=== PATIENT | female | born 1995 | race Caucasian/White ===

== ENCOUNTER 2021-12-19 11:17 | Emergency (ER) | payer OTHER, SELFPAY ==
[2021-12-19 12:07] VITALS: BP 135/89; PULSE 86; RESP 16; TEMP 36.4; O2SAT 99
[2021-12-19 12:44] LABS: Appearance Urine Clear (Clear); Bilirubin Urine Negative (Negative); Color Urine Yellow (Yellow); Glucose Urine UA Negative (Negative); Ketones Urine Negative (Negative); Leukocyte Esterase Ur Negative LEU/UL (Negative); Nitrate Urine Negative (Negative); Protein Urine Negative (Negative); Urobilinogen Urine 0.2 mg/dL (<2.0)
[2021-12-19 12:49] LABS: Add Urine Microscopic? YES; Blood Urine Trace-Intact (Negative)
[2021-12-19 12:54] LABS: Squamous Epithelial Cell Urine Moderate /hpf (Few)
--- NOTE | 2021-12-19 12:58 | ED.BACK ---
HPI - Back Pain/Injury General Chief Complaint: Back Pain/Injury Stated Complaint: back pain Time Seen by Provider: 12/19/21 12:10 History of Present Illness HPI Narrative: 25-year-old female presents the emergency room with cute onset of lower back pain. Patient states that she woke up with the pain yesterday and radiates up into her bilateral shoulder blades. Patient states pain is worse with rotation and lateral bending. Patient denies any injury or trauma. Patient denies any dysuria difficulty urinating. Patient states that she called EMS yesterday and was seen at [facility] emergency room but was not evaluated by any providers. Patient states that she has not taken any medication for the symptoms. Related Data Home Medications Medication Instructions Recorded Confirmed escitalopram oxalate 10 mg tablet 10 mg PO DAILY 12/19/21 12/19/21 (Lexapro) Allergies Allergy/AdvReac Type Severity Reaction Status Date / Time No Known Allergies Allergy Verified 12/19/21 12:14 Review of Systems Review of Systems: CONSTITUTIONAL: Denies fever, chills, or sweats. EYES: Denies visual changes, redness, or discharge. ENT: Denies rhinorrhea, congestion, sore throat, or otalgia. CARDIOVASCULAR: Denies chest pain, palpitations, or edema. RESPIRATORY: Denies cough or dyspnea. GASTROINTESTINAL: Denies abdominal pain, nausea, vomiting, or diarrhea. GENITOURINARY: Denies dysuria or hematuria. SKIN: Denies rash or itching. MUSCULOSKELETAL: Reports low back pain NEUROLOGIC: Denies headache, numbness, dizziness, or weakness. PSYCHIATRIC: Denies anxiety or depression. Exam Narrative: GENERAL: Well-appearing, well-nourished, and in no acute distress. HEAD: Normocephalic, atraumatic. EYES: PERRLA and EOMI. CHEST: Clear to auscultation. No respiratory distress. No wheezes rales or rhonchi HEART: Regular rate and rhythm. No murmur heard. Normal peripheral pulses. ABDOMEN: Soft, nontender, nondistended, normal active bowel sounds. EXTREMITIES: Normal range of motion. No edema. BACK: Tenderness over the right latissimus dorsi, with notable muscle spasms. No midline tenderness in the thoracic or lumbar spine, no step-offs, no bony abnormality. Pain is worse with bilateral rotation and bilateral lateral bend. No CVA tenderness SKIN: Warm, dry, no rash. NEURO: No focal deficits. Alert and oriented x3. No paresthesias PSYCH: Normal mood and affect. Course Vital Signs Vital signs: Vital Signs Temperature 36.4 C 12/19/21 12:07 Pulse Rate 86 12/19/21 12:07 Respiratory Rate 16 12/19/21 12:07 Blood Pressure 135/89 12/19/21 12:07 Pulse Oximetry 99 12/19/21 12:07 Oxygen Delivery Room Air 12/19/21 12:07 Temperature 36.4 C 12/19/21 12:07 Pulse Rate 86 12/19/21 12:07 Respiratory Rate 16 12/19/21 12:07 Blood Pressure 135/89 12/19/21 12:07 Pulse Oximetry 99 12/19/21 12:07 Oxygen Delivery Room Air 12/19/21 12:07 MDM - Back Pain/Injury Lab Data Labs: Lab Results 12/19/21 Range/Units 12:26 Urine Color Yellow (Yellow) Urine Appearance Clear (Clear) Urine pH 7.0 (5.0-9.0) Ur Specific Sarah Ann 1.020 (1.001-1.035) Urine Protein Negative (Negative) mg/dL Urine Glucose (UA) Negative (Negative) mg/dL Urine Ketones Negative (Negative) mg/dL Ur Blood (Man) Trace-intact (Negative) Urine Nitrate Negative (Negative) Urine Bilirubin Negative (Negative) Urine Urobilinogen 0.2 (<2.0) mg/dL Leukocyte Esterase Rfl Negative (Negative) NORBERTO/UL UCG Bedside Result Negative Reference Range: Negative Discharge Plan Discharge Clinical Impression: Strain of lumbar region Patient Disposition: Home, Self-Care Condition: Stable Instructions: Antibiotic Form, Acute Low Back Pain (ED) Prescriptions: New methocarbamol 500 mg tablet 500 mg PO TID 5 Days Qty: 15 0RF naproxen
[2021-12-19] MEDS: KETOROLAC (*BKC) 60 MG/2 ML VIAL IM (13:02)
[2021-12-19] MEDS: methocarbamoL 500 MG TABLET PO (13:02)
[2021-12-19 13:44] VITALS: BP 128/82; PULSE 70; RESP 18; TEMP 36.6; O2SAT 99
== END 2021-12-19 13:44 | disposition home or self-care (01) ==
PROVIDERS: Emergency Provider Nurse Practitioner Family; PCP Internal Medicine
DX: S39.012A Strain of muscle, fascia and tendon of lower back, initial encounter (principal); X58.XXXA Exposure to other specified factors, initial encounter
CPT/HCPCS: 81001; 81025; 87086; 96372; 99283; A9270; J1885

== ENCOUNTER 2023-07-07 09:12 | Outpatient (CLI) | payer OTHER, SELFPAY ==
[2023-07-07 19:24] LABS: Alanine Aminotransferase 53 U/L (6-35); Albumin Level 4.2 g/dL (3.5-5.1); Alkaline Phosphatase 55 U/L (38-126); Anion Gap 8 mmol/L (8-16); Aspartate Amino Transferase 45 U/L (14-36); Bilirubin,Total 0.4 mg/dL (0.2-1.3); Blood Urea Nitrogen 16 mg/dL (7-17); Calcium 9.1 mg/dL (8.4-10.2); Carbon Dioxide 26 mmol/L (22-30); Chloride 105 mmol/L (98-107); Cholesterol 152 mg/dL (0-200); Estimated Glomerular Filt Rate > 60; Glucose 88 mg/dL (65-110); HDL Direct 44 mg/dL; Potassium 4.1 mmol/L (3.4-5.0); Sodium 139 mmol/L (137-145); Triglycerides 38 mg/dL (<150)
[2023-07-07 19:35] LABS: LDL Cholesterol Direct 87 mg/dL
== END 2023-07-07 09:13 | disposition home or self-care (01) ==
LOC: ANHGOSHLAB 09:13
PROVIDERS: PCP Family Medicine; Visit Provider Physician Assistant Medical
DX: E78.2 Mixed hyperlipidemia (principal)
CPT/HCPCS: 36415; 80053; 80061

== ENCOUNTER 2025-01-17 09:06 | Outpatient (CLI) | payer OTHER, SELFPAY ==
--- NOTE | ~2025-01-17 | MMUS_ITS ---
EXAMINATION: MM diagnostic ghazal RT w svitlana, US breast RT limited INDICATION: 29-year old female present for imaging evaluation of a tender palpable right breast lump which has been present since 2019 but recently increasing in size. This lesion was evaluated with ilt rasound in 2019. COMPARISON: 12/07/2018 TECHNIQUE: Digital breast tomosynthesis CC and MLO views of right breast were obtained with computer- aided detection to assist in interpretation of the study. Radiopaque skin marker identify the palpa ble lump area. FINDINGS: The breasts are extremely dense, which lowers the sensitivity of mammography. There are no suspicious masses, calcifications, architectural distortion or any other abnormality in either breast. No suspicious mammographic abnormality correlates to the radiopaque skin marker. Ultra sound was performed for further evaluation. RIGHT BREAST ULTRASOUND FINDINGS: Targeted evaluation of area of palpable in the right breast completed showed a 1.69 x 0.60 x 1.76 c m solid hypoechoic mass with mildly irregular margins at 10:00, 8cm from the nipple location. This ma ss is larger compared to prior measurement of 1.64x0.97x0.45 cm. In addition, there is a new hypoechoic mass with mildly irregular margins seen at 10;00, 7 cm FN. IMPRESSION: Suspicious right breast masses at 10:00 location that correlates to area of palpable lump. RECOMMENDATION: Biopsy of 2 solid masses at 10:00 location under ultrasound guidance. BI-RADS 4, SUSPICIOUS Reviewed, dictated and finalized at location B. IMPRESSION: Suspicious right breast masses at 10:00 location that correlates to area of pal pable lump. RECOMMENDATION: Biopsy of 2 solid masses at 10:00 location under ultrasound guidance. BI-RADS 4, SUSPICIOUS
== END 2025-01-17 09:07 | disposition home or self-care (01) ==
LOC: MICIMG 09:07
PROVIDERS: PCP Family Medicine; Visit Provider Student in an Organized Health Care Education/Training Program
DX: N63.10 Unspecified lump in the right breast, unspecified quadrant (principal)
CPT/HCPCS: 76642; 77061; 77065; G0279

== ENCOUNTER 2025-01-25 08:32 | Outpatient (CLI) | payer OTHER, SELFPAY ==
--- NOTE | ~2025-01-25 | MMUS_ITS ---
MM post biopsy diagnostic RT, US breast biopsy RT w image, US breast bx add lesion RT EXAMINATION: US GUIDED NEEDLE BIOPSY WITH VACUUM ASSISTANCE DATE: 01/25/2025 10:33 CDT INDICATION: Right breast masses seen on prior examination. Ultrasound-guided core biopsy is requeste d to evaluate for malignancy. BREAST PARENCHYMAL COMPOSITION: Dense: The breasts are extremely dense, which lowers the sensitivity of mammography. TECHNIQUE AND FINDINGS: The risks and potential benefits of the procedure were discussed with the patient, and written inform ed consent was obtained. After sterile preparation of the right breast, 1% lidocaine was utilized fo r local anesthesia. 1% lidocaine with epinephrine was used for deep anesthesia. Right breast 7 mm mass at 10:00, 7 cm from the nipple: A 10G vacuum-assisted biopsy gun needle was ad vanced through to the outer edge of the region of interest from a lateral approach utilizing sonograp hic guidance. A total of 4 tissue core samples were obtained through the lesion. An Inrad tissue ma rker clip was then placed at the biopsy site. Hemostasis was achieved. Right breast: 1.5 cm mass at 10:00, 8 cm from the nipple: A 10G vacuum-assisted biopsy gun needle was advanced through to the outer edge of the region of interest from a lateral approach utilizing sonog raphic guidance. A total of 4 tissue core samples were obtained through the lesion. An Inrad tissue marker clip was then placed at the biopsy site. Hemostasis was achieved. The patient tolerated procedure well and there was no evidence of immediate complication. The patien t was given verbal instructions partly is from the department. Right breast mammograms to document t issue marker clip placement. The tissue samples were submitted to surgical pathology for histologic a nalysis. IMPRESSION: 1. Successful ultrasound-guided vacuum-assisted biopsies of right breast masses with post procedure mammogram for marker placement. Please refer to pathology report for histologic analysis. Reviewed, dictated and finalized at location B. IMPRESSION: 1. Successful ultrasound-guided vacuum-assisted biopsies of right breast nini s with post procedure mammogram for marker placement. Please refer to pathology report for histologic analysis. IMPRESSION: 1. Successful ultrasound-guided vacuum-assisted biopsies of right breast nini s with post procedure mammogram for marker placement. Please refer to pathology report for histologic analysis.
--- NOTE | 2025-01-25 10:11 | S_PTH ---
PATIENT: Patty Thomas V LOC: [facility] U#:[id number] AGE/SX: 29/F ROOM: RE01/25/[address]: Livia Tinajero PA-C : 1995 BED: DIS: 01/25/2025 SPEC #: [id number] RECD: 01/25/25 10:55 STATUS: LAILA REMichael #: [id number] ELIANA: 01/25/25 10:[address]: Livia Tinajero DEPT: [facility] Surgical RECD BY: Yen Cardenas ENTERED: 01/25/25 10:56 SP TYPE: Surgical OTHR DR: Latanya Davis, Tissues: A - Breast Biopsy B - Breast Biopsy Procedures: Hematoxylin and Eosin Stain Gross and Microscopic Level 4
== END 2025-01-25 08:33 | disposition home or self-care (01) ==
LOC: ANHIMG 08:36
PROVIDERS: PCP Family Medicine; Visit Provider Student in an Organized Health Care Education/Training Program
DX: N63.10 Unspecified lump in the right breast, unspecified quadrant (principal)
CPT/HCPCS: 19083; 19084; 77065; 88305; A4648